=== PATIENT | female | born 1955 | race Caucasian/White ===

== ENCOUNTER 2024-04-28 07:54 | Outpatient (CLI) | payer OTHER, SELFPAY ==
--- NOTE | 2024-04-28 09:08 | W.ANESCHARGE ---
Anesthesia Charges Start Date/Time Anesthesia Start Date: 04/28/24 Anesthesia Start Time: 08:40 Stop Date/Time Anesthesia Stop Date: 04/28/24 Anesthesia Stop Time: 09:06
--- NOTE | 2024-04-28 09:10 | W.ANESCHARGE ---
Anesthesia Charges Start Date/Time Anesthesia Start Date: 04/28/24 Anesthesia Start Time: 08:40 Stop Date/Time Anesthesia Stop Date: 04/28/24 Anesthesia Stop Time: 09:06
== END 2024-04-28 07:55 | disposition home or self-care (01) ==
LOC: OP CLINIC 07:57
PROVIDERS: PCP Physician Assistant Medical; Visit Provider Internal Medicine Gastroenterology
DX: Z12.11 Encounter for screening for malignant neoplasm of colon (principal)
CPT/HCPCS: 00812; 45378; J2704

== ENCOUNTER 2024-08-17 13:15 | Outpatient (RCR) | payer OTHER, SELFPAY | END 2024-12-15 23:59 | disposition home or self-care (01) | PROVIDERS: PCP Physician Assistant Medical; Visit Provider Family Medicine | DX: M54.16 Radiculopathy, lumbar region (principal); M47.816 Spondylosis without myelopathy or radiculopathy, lumbar region; M51.369 Other intervertebral disc degeneration, lumbar region without mention of lumbar back pain or lower extremity pain; Z51.89 Encounter for other specified aftercare | CPT/HCPCS: 97110; 97140; 97163 ==

== ENCOUNTER 2025-02-06 11:11 | Emergency (ER) | payer OTHER, SELFPAY ==
--- OUTSIDE RECORDS SUMMARY | 2025-02-06 11:13 | XMS_ITS | Clinical Summary ---
Author Organization [facility] Address [address] [place] [address] Care Team Providers Care Tunnel Kiln Firer Name Role Phone Aida Nevarez Primary Care Provider Allergies Active Allergy Reactions Criticality Noted Date Comments Sulfa (Sulfonamide Antibiotics) 06/03/2007 Tetanus And Diphtheria Toxoids, Adsorbed, Adult 06/03/2007 reacted to last tetanus shot-arm very swollen and hard after injection Medications Ergocalciferol, Vitamin D2, 1,000 unit capsuleIndications: Vitamin D deficiency Take 2,000 units by mouth once daily. 0 011 Active albuterol HFA (VENTOLIN HFA) 90 mcg/actuation inhalerIndications: SOB (shortness of breath) Inhale 1-2 Puffs by mouth every 6 hours if needed. 1 Inhaler 020 Active famotidine (PEPCID) 20 mg tablet Take 1 Tablet (20 mg) by mouth two times daily. 0 023 Active triamcinolone (ARISTOCORT; KENALOG) 0.1 % creamIndications:Nu mmular eczema Apply topically to affected area(s) two times daily. To right arm 80 g 023 Active warfarin (COUMADIN) 5 mg tabletIndications:F actor V Leiden mutation (HC),Deep vein thrombophlebitis of left leg (HC),Anticoagulatio n monitoring, INR range 2-3 Take by mouth 01/11: 2.5 mg; 01/27: Hold; 01/28: Hold; 01/29: Hold; 01/30: Hold; 01/31: Hold; Otherwise 5 mg every day in the evening OR as directed Active fluconazole (DIFLUCAN ORAL) Take by mouth. Prn if signs of potential yeast infection Active oxyCODONE (ROXICODONE) 5 mg immediate release tabletIndications:S /P total knee arthroplasty, left Take 1-2 Tablets (5-10 mg) by mouth every 4 hours if needed for Pain (For moderate to severe pain). (Take 1 tab (5 mg) for pain rated 5-7/10; Take 2 tabs (10 mg) for pain rated 8-10/10.) 20 Tablet 4:08 PM CDT Active acetaminophen (TYLENOL EXTRA STRGTH) 500 mg tabletIndications:S /P total knee arthroplasty, left Take 2 Tablets (1,000 mg) by mouth every 6 hours if needed for Pain. Max acetaminophen dose: 4000 mg in 24 hrs. 100 Tablet Active warfarin 5 mg tabletIndications:F actor V Leiden mutation (HC),Deep vein thrombophlebitis of left leg (HC),Anticoagulatio n monitoring, INR range 2-3 Take by mouth 5 mg (5 mg x 1) every day in the evening OR as directed 95 Tablet 025 2024 Discontin ued(Reord er (E-cancel not sent)) warfarin (COUMADIN) 5 mg tabletIndications:F actor V Leiden mutation (HC),Deep vein thrombophlebitis of left leg (HC),Anticoagulatio n monitoring, INR range 2-3 Take by mouth 5 mg (5 mg x 1) every day in the evening OR as directed 95 Tablet 025 2024 Discontin ued(Reord er (E-cancel not sent)) amoxicillin-clavula rita (AUGMENTIN) 875-125 mg tabletIndications:A cute non-recurrent maxillary sinusitis Take 1 Tablet by mouth two times daily with meals for 10 days. 20 Tablet 025 2024 fluconazole (DIFLUCAN) 150 mg tabletIndications:Y east vaginitis Take 1 Tablet (150 mg) by mouth one time for 1 dose. 1 Tablet 025 2024 amoxicillin/potassi um clav (AUGMENTIN ORAL) Take by mouth. RX to take for 10 days 2024 Discontin ued(*Francesca ent states no longer taking) Active Problems Problem Noted Date Diagnosed Date S/p Left total knee arthropl asty DOS: 02/01/2025 with Gagandeep Ruff MD 02/01/2025 Unilateral primary osteoarthritis, left knee MGUS (monoclonal gammopathy of unknown significa nce) 02/01/2025 History of DVT (deep vein thrombosis) 02/01/2025 Vitamin D deficiency 01/31/2025 Acute non-recurrent maxillary sinusitis 02/01/20 Adjustment disorder with mixed anxiety and depre ssed mood 05/18/2014 Anticoagulation monitoring, INR range 2-3 2013 Skin lesion of back 10/10/2013 Routine general medical exam ination at a health care facility 12/10/2010 Overview (11/01/2013): Colonoscopy 2001, showing hemorrhoids. Repeat recommend at age 52 Colonoscopy 10/2013 normal repeat in 10 years Medial meniscus tear 12/13/2009 Overview (10/10/2013): Had surgery, still has troubles. Factor V Leiden mutation 11/08/2009 Vitamin D deficiency 04/06/2009 Deep vein thrombophlebitis of left leg 9 Overview (03/29/2009): INR goal range 2.0-3.0 Encounters Date Type Department Care Team Description 02/06/2025 Nurse Triage [facility] [address] [place] [address] Aida Nevarez PA Diarrhea 02/06/2025 Telephone [facility] [address] [facility] [address] [place] [address] Jessica May, clarifying plant operator Nurse Navigator (Diarrhea/hemorrhoids ) 02/05/2025 Telephone [facility] [address] [facility] [address] [place] [address] Jessica May clarifying plant operator Nurse Navigator (Follow up discharge phone call) 02/01/2025 8:21 AM CDT Anesthesia Event [place] [address] [place] [address] Casimiro Handy MD Dahl, Ashley Rose Dragavon, MD 02/01/2025 7:40 AM CDT - 02/01/2025 9:47 AM CDT Surgery [address] [place] [address] Gagandeep Ruff MD BEDDED OUTPATIENT LEFT TOTAL KNEE ARTHROPLASTY 02/01/2025 6:06 AM CDT - 02/02/2025 11:40 AM CDT Hospital Encounter [address] [place] [address] Gagandeep Ruff MD Primary osteoarthritis of left knee (Primary Dx); S/P total knee arthroplasty, left Discharge Disposition: Home Self Care 01/31/2025 Travel 01/25/2025 10:00 AM CDT Orders Only [facility] [address] [place] [address] [place] Lab 01/25/2025 Anticoagulation (warfarin) [facility] [address] [place] [address] NurseKirti Anticoag Anticoagulation 01/24/2025 Travel 01/16/2025 Telephone [facility] [address] [facility] [address] [place] [address] Jessica May, clarifying plant operator Nurse Navigator (Pre-op check in ) 01/10/2025 10:30 AM CDT Orders Only [facility] [address] [place] [address] [place] [facility] 01/10/2025 Telephone [facility] [address] [place] [address] Aida Nevarez PA Anticoagulation (Procedure hold update.) 01/10/2025 Anticoagulation (warfarin) [facility] [address] [place] [address] NurseKirti Anticoag Anticoagulation 01/10/2025 Travel 01/09/2025 Telephone [facility] [address] [place] [phone] Gagandeep Ruff MD Physical Therapy 01/08/2025 10:30 AM CDT Office Visit [facility] [address] [place] [address] Aida Nevarez PA Preoperative Exam (L knee) 01/08/2025 Anticoagulation (warfarin) [facility] [address] [place] [address] NurseKirti Anticogómez Anticoagulation (chart update) 01/08/2025 Telephone [facility] [address] [place] [address] Aida Nevarez PA Anticoagulation (OPA- amoxicillin-clavulana te (AUGMENTIN)) 01/08/2025 Telephone [facility] [address] [place] [address] Aida Nevarez PA Medication Management ([id number] interaction) 01/08/2025 Travel 01/03/2025 Travel 12/14/2024 Anticoagulation (warfarin) [facility] [address] [place] [address] NurseKirti Anticoag Anticoagulation 12/14/2024 Travel 12/04/2024 Telephone [facility] [address] [place] [address] Aida Nevarez PA Anticoagulation (02/01/25 - LEFT TOTAL KNEE ARTHROPLASTY) 11/27/2024 Telephone [facility] [address] [place] [address] Aida Nevarez PA Anticoagulation (INR OVERDUE REMINDER #2) from Last 3 Months Immunizations Immunization Administration Dates Next Due AMB Influenza, IIV3 (Age >=3 years)(Flu Clinic Only) 04/28/2012 AMB Influenza, IIV4 PF (=>6 mos Flulaval,Fluzone Fluarix)(Flu Clinic Only) 04/19/2014 COVID-19 vaccine (MyPublisher NTech 30mcg/0.3mL) 12YO+ BIVALENT PF, MDV 04/03/2022 COVID-19 vaccine ([employer]ech 30mcg/0.3mL) 12YO+ BLAYNE-SUCROSE PF, MDV 12/18/2021 COVID-19 vaccine ([employer]ech 30mcg/0.3mL) PF, MDV 05/19/2021,09/30/2020,09/09/2020 Influenza A (H1N1), Inactivated 06/11/2009 Influenza A (H1N1), Inactiva donna (Age >=3 Years) 06/11/2009 Influenza, IIV3 (Age >=3 years) 04/28/2012,03/17,03/24/2010 Influenza, IIV4 04/03/2022, 9,04/19/2018,2016,03/26/2016,05/10/2015,04/19/2014,1 Influenza, IIV4 (=>6mos) MDV 03/08/2020,03/30/20 16 Influenza, Inactivated IIV3 (Age 65+ Years) Preserv Free 03/22/2024 Influenza, Injectable, Mdck, Quadrivalent, W/preservative 04/01/2021 Td (Age >=7 Years) 01/12/2002 Zoster (Shingrix-RZV, recombinant) 09/05/2021, Family History Medical History Relation Name Comments Factor V Leiden deficiency Brother 1 Other Brother 1 MGUS Diabetes Brother 2 Factor V Leiden deficiency Brother 2 Heart Disease Father Heart failure Father Hypertension Father Thyroid Disease Father Arthritis Mother Heart Disease Mother Hypertension Mother Other Mother Stroke Mother Celiac disease Sister Cancer-breast No Family History Cancer-ovarian No Family History Relation Name Status Comments Brother 1 Alive Brother 2 Alive Father Mother Sister Alive Social History Tobacco Use Types Packs/Day Years Used Date Smoking Tobacco: Never Smokeless Tobacco: Never Tobacco Cessation:Counseling Given: Yes Alcohol Use Standard Drinks/Week Comments Yes 5.8 (1 standard drink = 0.6 oz p ure alcohol) occasional PHQ-2 Answer Date Recorded PHQ-2 Score 1 12/19/2018 Social Connections Answer Date Recorded Do you often feel lonely or isolated from those around you? 0 01/18/2024 Financial Resource Strain Answer Date R ecorded Difficulty of Paying Living Expenses 3 01/18/2024 Difficulty of Paying Living Expenses Not on file 01/18/2024 Food Insecurity Answer Date Recorded Do you worry your food will run out before you are able to buy more? 1 01/18/2024 Transportation Needs Answer Date Record ed Does lack of transportation keep you from medica l appointments? 1 01/18/2024 Does lack of transportation keep you from work, meetings or getting things that you need? 1 01/18/2024 Housing Stability Answer Date Recorded What is your housing situation today? 1 01/18/2024 Utilities Answer Date Recorded Do you have trouble paying f or utilities (for example, heat, electricity, water, phone)? 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 Gender Identity Female 12/22/2019 10:02 AM CDT Sexual Orientation Not on file Obstetrics History Last Filed Vital Signs Vital Sign Reading Time Taken Comments Blood Pressure 131/60 02/02/2025 7:22 AM CDT Pulse 67 02/02/2025 7:22 AM CDT Temperature 36.8 C (98.2 F) 02/02/2025 7:22 AM CDT Respiratory Rate 16 02/02/2025 7:22 AM CDT Oxygen Saturation 96% 02/02/2025 7:22 AM CDT Inhaled Oxygen Concentration - - Weight 102.5 kg (225 lb 15.5 oz) 02/01/2025 7:23 AM CDT Height 170.2 cm (5' 7) 02/01/2025 7:23 AM CDT Body Mass Index 35.39 02/01/2025 7:23 AM CDT Plan of Treatment Upcoming Encounters Date Type Department Care Team (Late st Contact Info) Description 02/08/2025 1:30 PM CDT Orders Only [facility] [address] [place] 02/15/2025 10:20 AM CDT Office Visit [facility] [address] [place] [phone] Jennifer Cifuentes PA [address] [place] [address] Scheduled Procedures Name Priority Associated Diagnoses Date/Ti me SURGICAL PROCEDURE (TYPE PROCEDURE DESCRIPTION BELOW) Encounter for screening colonoscopy Health Maintenance Due Date Last Done Comments Pneumococcal series for age 50+ (1 of 1 - PCV) 11/15/2007 RSV vaccine for adults or (1 - Risk 60-74 years 1-dose series) 2017 Depression screening for age 12+ 12/20/2019 12/19/2018, 12/19/2018, 09/27/2017, Additional history exists COVID-19 vaccine series (2023- season) 2024 03/22/2024, 03/24/2023, 04/03/2022, Additional history exists BMI (ht and wt on same day) for age 18+ 01/17/2025 01/18/2024, 12/14/2022, 03/13/2022, Additional history exists Mammogram for age 45-75 02/10/2025 02/11/20 24, 12/17/2022, 09/04/2021, Additional history exists Influenza Vaccine (#1) 2025 , 04/03/2022, 04/01/2021, Additional history exists Lipids for age 45-75 01/17/2029 01/18/2024, 12/14/2022, 03/13/2022, Additional history exists Colonoscopy through age 75 04/28/203404/28, 11/01/2013, 11/01/2013 Hepatitis C screening for age 18-79 Completed 10/10/2013 Zoster (shingles) series for age 50+ Completed 09/05/2021, 03/11/2021 DEXA/DXA scan for age 65+ Completed 04/10/2024 Hepatitis B series for 19+ Aged Out N o longer eligible based on patient's age to complete this topic Medical Devices Implanted Type Area Quality Compliance Coordinator Device Identifier Shelf Expiration Date Model / Serial / Lot Insert Tib Sz 6 13mm Knee X3 Condylar Stabilizing Triathlon - [id number] Implanted:Qty: 1 on 02/01/2025 by Gagandeep Ruff MD at [facility] Left: Knee [employer] 10/03/2029 [id number]-G-[id number] / / [id number] Patella A38x11 Triathlon Tritanium Asymmetric Metal Backed - [id number] Implanted:Qty: 1 on 02/01/2025 by Gagandeep Ruff MD at [facility] Left: Knee [employer] 09/27/2029 [id number] / / [id number] Baseplate Tib Univ Sz 6 Triathlon Keeled Ingrowth Pors Tritan - [id number] Implanted:Qty: 1 on 02/01/2025 by Gagandeep Ruff MD at [facility] Left: Knee [employer] 12/01/2029 [id number] / / [id number] Fem Lt 6 Triathlon Beaded W/Pa - [id number] Implanted:Qty: 1 on 02/01/2025 by Gagandeep Ruff MD at [facility] Left: Knee [employer] 11/20/2029 [id number] / / [id number] Procedures Procedure Name Priority Date/Time Associated Diagnosis Comments HEMOGLOBIN Early AM 02/02/2025 9:01 AM CDT PROTIME-INR Early AM 02/02/2025 9:01 AM CDT XR KNEE 2 VIEWS LEFT PORTABLE KRYSTEN 02/01/2025 10:48 AM CDT PERIPHERAL BLOCK Routine 02/01/2025 9:03 AM CDT ENDOTRACHEAL TUBE Routine 02/01/2025 8:55 AM CDT ENDOTRACHEAL TUBE Routine 02/01/2025 8:55 AM CDT ENDOTRACHEAL TUBE Routine 02/01/2025 8:55 AM CDT ARTHROPLASTY KNEE Tier 4: > 90 days 02/01/2025 8:01 AM CDT Primary osteoarthritis of left knee Case Notes 60 [id number] REGULAR TABLE [employer] [employer], [employer] confirmed w/Socrates Rodriguez [phone] 01/24 JTPA TO ASSIST Special Needs 5ft.7in 105.2kg 35.82 BMIPONVCoumadin Last dose 01/27/2025 GLUCOSE, RANDOM Today 02/01/2025 7:00 AM CDT PROTIME-INR Preop 02/01/2025 7:00 AM CDT CREATININE Preop 02/01/2025 7:00 AM CDT POTASSIUM Preop 02/01/2025 7:00 AM CDT CBC W PLT NO DIFF Preop 02/01/2025 7:00 AM CDT BEDSIDE US STUDY ARCHIVE Preop 02/01/2025 6:36 AM CDT BEDSIDE US STUDY ARCHIVE Routine 02/01/2025 6:25 AM CDT SCAN-CARDIAC STRIP 02/01/2025 12:00 AM CDT PROTEIN ELP SERUM W REFLEX Routine 01/25/2025 10:10 AM CDT Family history of blood disorder PROTEIN ELP,URINE RANDOM Routine 01/25/2025 10:10 AM CDT Family history of blood disorder PROTIME-INR Routine 01/25/2025 10:10 AM CDT Factor V Leiden mutation (HC) Deep vein thrombophlebitis of left leg (HC) Anticoagulation monitoring, INR range 2-3 EKG 12 LEAD Routine 01/10/2025 3:44 PM CDT Preop general physical exam SC READING EKG - NO CHARGE, COMP ONLY Routine 01/10/2025 3:43 PM CDT Preop general physical exam INR,POCT Routine 01/10/2025 10:43 AM CDT Factor V Leiden mutation (HC) Deep vein thrombophlebitis of left leg (HC) Anticoagulation monitoring, INR range 2-3 INR,POCT Routine 12/14/2024 1:15 PM CDT Factor V Leiden mutation (HC) Deep vein thrombophlebitis of left leg (HC) Anticoagulation monitoring, INR range 2-3 COLONOSCOPY SCREENING Routine 04/28/2024 12:00 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 Daily x 1 (02/02/2025 9:01 AM CDT) HEMOGLOBIN 11.4(L) 12.0 - 16.0 g/dL 02/02/2025 9:26 AM CDT [facility] MCV 92 80 - 100 fL 02/02/2025 9:26 AM CDT [facility] Blood BLOOD SPECIMEN / Unknown Venipuncture / Unknown 02/02/2025 9:01 AM CDT 02/02/2025 9:12 AM CDT Narrative [facility] - 02/02/2025 9:26 AM CDT Call surgeon if hemoglobin less than 8. us Nathaniel DOWD HEMATOLOGY Final Resu lt Performing Organization Address [facility]/ZIP Co de Phone Number [facility] SENDOUT [place]IP [phone] [place] [address] * PROTIME-INR (02/02/2025 9:01 AM CDT) Only the most recent of3 resultswithin the time period is included. INR 1.1 <1.3 02/02/2025 9:24 AM CDT [facility] PROTIME 12.4 10.6 - 12.4 sec 02/02/2025 9:24 AM CDT [facility] Blood BLOOD SPECIMEN / Unknown Venipuncture / Unknown 02/02/2025 9:01 AM CDT 02/02/2025 9:12 AM CDT Narrative [facility] - 02/02/2025 9:24 AM CDT Therapeutic Range 2.0-3.0 for most anticoagulated patients 2.5-3.5 or 4.0 for high risk patients The INR is only used for patients on stable oral anticoagulant therapy. It makes no significant contribution to the diagnosis or treatment of patients whose Protime is prolonged for other reasons. INR results are increased when heparin levels exceed 1.0 U/mL, which corresponds to an aPTT >125 seconds if the patient is on UFH. Carole Malin MD HEMATOLOGY Fin al Result Performing Organization Address [facility]/ZIP Co de Phone Number [facility] SENDOUT [place]IP [phone] [place] [address] * XR KNEE 2 VIEWS LEFT PORTABLE (02/01/2025 10:48 AM CDT) Anatomical Region Laterality Modality KNEE L Computed Radiogr aphy 02/01/2025 10:4 8 AM CDT Impressions 02/01/2025 10:53 AM CDT Expected postoperative changes status post recent total knee arthroplasty. No immediate hardware complication. No acute fracture or malalignment. Narrative 02/01/2025 10:53 AM CDT For Patients: As a result of the Century Cures Act, medical imaging exams and procedure reports are released immediately into your electronic medical record. You may view this report before your referring provider. If you have questions, please contact your health care provider. EXAM: XR KNEE 2 VIEWS LEFT PORTABLE LOCATION: [facility] DATE: 02/01/2025 INDICATION: Eval prosthesis/appliance COMPARISON: Radiographs 09/14/2024. Procedure Note Carole Ruff MD - 02/01/2025 For Patients: As a result of the Cures Act, medical imagingexams and procedure reports are released immediately into your electronicmedical record. You may view this report before your referring provider.If you have questions, please contact your health care provider. EXAM: XR KNEE 2 VIEWS LEFT PORTABLE LOCATION: [facility] DATE: 02/01/2025 INDICATION: Eval prosthesis/appliance COMPARISON: Radiographs 09/14/2024. IMPRESSION: Expected postoperative changes status post recent total knee arthroplasty.No immediate hardware complication. No acute fracture or malalignment. us Nathaniel DOWD [facility] Final Resu lt * [facility] ANES BLOCK INJ PERIPH (02/01/2025 9:03 AM CDT) Narrative Casimiro Handy MD - 02/01/2025 9:03 AM CDT Casimiro Handy MD 02/01/2025 9:05 AM Peripheral Block Patient location during procedure: pre-op Start time: 02/01/2025 8:13 AM End time: 02/01/2025 8:18 AM Reason for block: at surgeon's request and post-op pain Requesting provider: Gagandeep Ruff MD PreProcedure Checklist Completed: patient identified, site marked, risks and benefits discussed, surgical consent, timeout performed and hand hygiene performed. Peripheral Block Patient position: sitting Prep: chloraprep Patient monitoring: continuous pulse oximetry, blood pressure and ECG Supplemental O2: yes Neuro Status: mild sedation Block type: adductor canal and lower extremity , regional analgesia techniques Lower extremity block type: adductor canal block of the femoral nerve Laterality: left Injection technique: single injection Injection assessment: incremental Needle Needle type: Stimuplex Needle Details: echogenic Needle gauge: 20 G Needle length: 4 in Unilateral needle localization (ultrasound): live ultrasound guidance, needle and nerve visualized, no pathologic findings, local anesthetic visualized surrounding nerve, nerve appears normal and permanent images obtained. Unilateral needle Localization (plane blocks): needle and expected nerve location visualized, local anesthetic visualized in anatomic plane and anatomic plane and expected location of nerve appears normal Events: no complications. Casimiro Handy MD ANESTHESIA PX NOTE ORDERABLES Final Result * [facility] TUBE PR1, [facility] STYLET PR1, [facility] MOUTHPIECE PR1 (02/01/2025 8:55 AM CDT) Narrative Carlota Donaldson CRNA - 02/01/2025 8:55 AM CDT Carlota Donaldson CRNA 02/01/2025 8:55 AM Procedure: ETT Patient location during procedure: OR ETT Properties Mask Ventilation: easy Final Technique: direct laryngoscopy Type: straight Location: oral Cuffed: yes Tube Size: 7.0 mm Stylet: yes Laryngoscope Blade: Guzman Blade Size: 2 Cormack-Lehane Grade View: 2 Insertion Attempts: 1 Placement Verification: auscultation, end tidal CO2 and symmetrical chest wall movement Assessment: pharynx clear, atraumatic and dentition unchanged Secured at: 24 Measured From: teeth Tooth guard used and removed: yes Difficulty: 0 (not difficult) Casimiro Handy MD ANESTHESIA PX NOTE ORDERABLES Final Result * GLUCOSE, RANDOM (02/01/2025 7:00 AM CDT) GLUCOSE,RANDOM 106 70 - 139 mg/dL 02/01/2025 7:27 AM CDT [facility] Blood BLOOD SPECIMEN / Unknown Venipuncture / Unknown 02/01/2025 7:00 AM CDT 02/01/2025 7:03 AM CDT Gagandeep Ruff MD CHEMISTRY Final Result [facility] SENDOUT [place] Z[address] [phone] [place] [address] * CBC with Platelets no Differential (02/01/2025 7:00 AM CDT) WHITE BLOOD COUNT 6.3 4.5 - 11.0 thou/cu mm 02/01/2025 7:12 AM [facility] RED BLOOD COUNT 4.38 4.00 - 5.20 mil/cu mm 02/01/2025 7:12 AM [facility] HEMOGLOBIN 13.4 12.0 - 16.0 g/dL 02/01/2025 7:12 AM [facility] HEMATOCRIT 39.5 33.0 - 51.0 % 02/01/2025 7:12 AM [facility] MCV 90 80 - 100 fL 02/01/2025 7:12 AM [facility] MCH 30.6 26.0 - 34.0 pg 02/01/2025 7:12 AM [facility] MCHC 33.9 32.0 - 36.0 g/dL 02/01/2025 7:12 AM [facility] RDW 13.4 11.5 - 15.5 % 02/01/2025 7:12 AM [facility] PLATELET COUNT 292 140 - 440 thou/cu mm 02/01/2025 7:12 AM [facility] MPV 9.6 6.5 - 11.0 fL 02/01/2025 7:12 AM [facility] NRBC 0.0 % 02/01/2025 7:12 AM [facility] ABS NRBC 0.0 thou /cu mm 02/01/2025 7:12 AM [facility] Blood BLOOD SPECIMEN / Unknown Venipuncture / Unknown 02/01/2025 7:00 AM CDT 02/01/2025 7:03 AM [facility] - 02/01/2025 7:12 AM CDT If not done within last 30 days. Nurse to release order. us Nathaniel DOWD HEMATOLOGY Final Resu lt [facility] SENDOUT [place] [address] [phone] [place] [address] * Potassium (02/01/2025 7:00 AM CDT) POTASSIUM 4.0 3.5 - 5.1 mmol/L 02/01/2025 7:27 AM [facility] Blood BLOOD SPECIMEN / Unknown Venipuncture / Unknown 02/01/2025 7:00 AM CDT 02/01/2025 7:03 AM CDT Nathaniel DOWD CHEMISTRY Final Resu Performing Organization Address [facility]/ZIP Co de Phone Number [facility] SENDOUT INTERNAL ZIP [phone] [place] [id number] * (ABNORMAL) Creatinine (02/01/2025 7:00 AM CDT) Pathologist [facility] eGFR 67(L) >90 mL/min/1.7 3m2 02/01/2025 7:27 AM CDT [facility] Comment:As of 2021, eG FR is calculated by the CKD-EPI creatinine equation without race adjustment. eGFR can be influenced by muscle mass, exercise, and diet. The reported eGFR is an estimation only and is only applicable if the renal function is stable. CREATININE 0.94(H) 0.50 - 0.90 mg/dL 02/01/2025 7:27 AM CDT [facility] Blood BLOOD SPECIMEN / Unknown Venipuncture / Unknown 02/01/2025 7:00 AM CDT 02/01/2025 7:03 AM CDT Nathaniel DOWD CHEMISTRY Final Resu Performing Organization Address City/[facility]/ZIP Co de Phone Number [facility] SENDOUT INTERNAL ZIP [id number] [address] [place] [address] * SCAN-CARDIAC STRIP (02/01/2025 12:00 AM CDT) Narrative 02/01/2025 12:00 AM CDT Ordered by an unspecified provider. Other Clinical Staff OTHER Final Resul t * PROTEIN ELP SERUM W REFLEX (01/25/2025 10:10 AM CDT) Pathologist [facility] ELP,ALBUMIN 4.51 3.31 - 5.31 g/dL 01/26/2025 3:24 PM CDT [facility] ELP,ALPHA 1 0.25 0.19 - 0.42 g/dL 01/26/2025 3:24 PM CDT [facility] ELP,ALPHA 2 0.62 0.44 - 1.03 g/dL 01/26/2025 3:24 PM CDT [facility] ELP,GAMMA 0.88 0.59 - 1.46 g/dL 01/26/2025 3:24 PM CDT [facility] ELP,BETA 0.83 0.52 - 1.05 g/dL 01/26/2025 3:24 PM CDT [facility] ELP INTERP,SERUM Normal electrophoretic pattern. No monoclonal protein detected. Interpreted and electronically signed by: Fan Ramon MD 01/26/2025 3:24 PM CDT [facility] PROTEIN,TOTA L 7.1 6.0 - 8.0 g/dL 01/26/2025 3:24 PM CDT [facility] Blood BLOOD SPECIMEN / Unknown [facility] / Unknown 01/25/2025 10:10 AM CDT 01/25/2025 10:10 AM CDT Aida DOWD CHEMISTRY Final R esult [facility] [address] [place] [address], [place] * PROTEIN ELP,URINE RANDOM (01/25/2025 10:10 AM CDT) ELP INTERP, URINE Essentially no proteinuria. No monoclonal protein detected. Interpreted and electronically signed by: Fan Ramon MD 01/26/2025 4:29 PM CDT [facility] PROTEIN QUANT,RAND URINE <6 1 - 14 mg/dL 01/26/2025 4:29 PM CDT [facility] Urine URINE SPECIMEN / Unknown Non-Blood / Unknown 01/25/2025 10:10 AM CDT 01/25/2025 10:10 AM CDT us Aida DOWD URINE Final R esult [facility] [address] [place] [address], [place] * EKG 12 LEAD (01/10/2025 3:44 PM CDT) us Aida DOWD EKG ORD Final R esult * SC READING EKG - NO CHARGE, COMP ONLY (01/10/2025 3:43 PM CDT) Aida DOWD PB - PROVIDER READINGS Final Result * (ABNORMAL) INR - POCT [[id number]] - Standing Order (01/10/2025 10:43 AM CDT) Only the most recent of2 resultswithin the time period is included. INR 2.9(H) ratio [facility] Comment: INRs >2.9 may be falsely elevated in patients receiving either unfractionated Heparin or Low Molecular Weight Heparin. Follow up testing in a hospital laboratory may be helpful if clinically indicated. INR results of > or = 5.0 should be verified using the standard venipuncture procedure. Reference Range 0.9-1.1 Moderate-intensity Warfarin Therapy 2.0-3.0 Higher-intensity Warfarin Therapy 3.0-4.0 PROTHROMBIN TIMEP 34.7(H) 10.5 - 13.1 sec [facility] Comment: Point of care fingerstick Prothrombin Time/INR results may vary from venous Prothrombin Time/INR methodologies. Any results exhibiting inconsistency with the patient's clinical status should be repeated using a venous Prothrombin Time/INR method. 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 RECOMMENDATIONS: The National Osteoporosis Foundation recommends pharmacologic treatment for patients with T-scores of -2.5 or less, patients with prior history of fragility fractures, or patients with 10-year probability of greater than 3% at hips or greater than 20% of suffering major osteoporotic fractures. Recommend continued optimization of calcium and vitamin D intake through dietary means and/or supplementation and regular exercise. Repeat scan recommended in 3-5 years. Aida Nevarez PA-C [facility] 04/12/2024 Narrative 04/12/2024 4:25 PM CDT For Patients: Results are automatically released to your [facility] account once available, in compliance with federal regulations. This means that you may see your results before your provider has had a chance to review them. Please allow 2-3 business days for your provider to comment on the results. XR DXA Bone Mineral Density (BMD) EXAM LOCATION: [facility] [address] [facility] [address] PATIENT NAME: Mary Montero DATE OF : 1955 EXAM DATE: 04/10/2024 REQUESTING PROVIDER: Aida Nevarez PA GENDER AT : female HEIGHT: 5' 7.48 (01/18/2024) WEIGHT: 229 lb (04/10/2024) MENOPAUSAL STATUS: Postmenopausal RACE/ETHNICITY: White RISK FACTORS: Family History of Osteoporosis, Family History of Hip Fracture (parental), and White Race CURRENT MEDICATION FOR BONE LOSS: NONE INDICATION: Post-Menopause COMPARISON DATE(S): None DXA scans are compared to prior studies for a patient only when the two (or more) studies were performed on the same scanner. It is not possible to compare data generated on one scanner to data from another because there are not standards in DXA equipment. This applies even if the two scanners are made by the same statistical engineer. PROCEDURE: Dual-energy x-ray absorptiometry performed with routine technique. Reporting is completed in the form of a T-score. The T-score represents the standard deviation from peak bone mass based on young healthy adult. A Z-score is used for diagnosis in premenopausal women, and for men under the age of 50. FINDINGS: RESULT LUMBAR SPINE L1 - L4 BMD: 1.391 g/cm2 T-Score: + 1.6 Z-Score: + 2.0 Change from prior: None RESULTS FEMUR Left femoral neck BMD: 0.767 g/cm2 T-Score: - 1.9 Z-Score: - 1.2 Change from prior: None Right femoral neck BMD: 0.898 g/cm2 T-Score: - 1.0 Z-Score: - 0.2 Change from prior: None Left hip BMD: 0.833 g/cm2 T-Score: - 1.4 Z-Score: - 1.0 Change from prior: None Right hip BMD: 0.906 g/cm2 T-Score: - 0.8 Z-Score: - 0.4 Change from prior: None WHO criteria: Normal: T-score at or above -1 SD Osteopenia: T-score between -1.1 and -2.4 SD Osteoporosis: T-score at or below -2.5 SD FRAX RISK CALCULATION (USED FOR OSTEOPENIA ONLY): 10-year probability of major osteoporotic fracture: 17.9%. 10-year probability of hip fracture: 1.9%. us Aida DOWD DEXA Final R esult * XR MAMMO ANTONI BILAT SCREEN (02/11/2024 11:23 AM CDT) Anatomical Region Laterality Modality BREASTS, Breast Left, Breast Right Bilateral Mammography Impressions 02/11/2024 4:06 PM CDT There is no radiographic evidence for malignancy. Recommend annual mammograms. MAMMOGRAM ASSESSMENT: ACR 1 Negative PATIENTS: You will also receive a letter with your examination results in an easy to read format. If you have questions about your results, please contact your referring provider. Narrative 02/11/2024 4:06 PM CDT For Patients: As a result of the 21st Century Cures Act, medical imaging exams and procedure reports are released immediately into your electronic medical record. You may view this report before your referring provider. If you have questions, please contact your health care provider. XR MAMMO ANTONI BILAT SCREEN [[id number]] CLINICAL HISTORY: This is an asymptomatic 68 y.o. patient. INDICATION FOR EXAM: Mammogram Screening. TECHNIQUE: CC & MLO views were obtained. This study was evaluated with the assistance of Computer-Aided Detection. Breast Tomosynthesis was used in interpretation. COMPARISON FILM: Yes 12/17/22 [employer] 09/04/21 [facility] FINDINGS: There are scattered areas of fibroglandular density. There are no dominant masses, suspicious micro calcifications or areas of architectural distortion. us Aida Nevarez PA MAMMO Final R esult * (ABNORMAL) LIPID PANEL W REFLEX MEASURED LDL (01/18/2024 11:34 AM CDT) CHOLESTEROL,TOTAL 204(H) 100 - 199 mg/dL 01/19/2024 1:12 AM CDT [facility] Comment: Cholesterol, Total Reference Ranges Desirable <200 mg/dL Borderline 200-239 mg/dL High >=240 mg/dL TRIGLYCERIDES 121 <150 mg/dL 01/19/2024 1:12 AM CDT [facility] HDL CHOLESTEROL 62 >40 mg/dL 4 1:12 AM CDT [facility] NON-HDL CHOLESTEROL 142 <145 mg/dl 01/19/2024 1:12 AM CDT [facility] CHOL/HDL RATIO 3.29 <4.50 01/19/2024 1:12 AM CDT [facility] LDL CHOLESTEROL 118 <=130 mg/dL 01/19/2024 1:12 AM CDT [facility] VLDL CHOLESTEROL 24 <=30 mg/dL 01/19/2024 1:12 AM CDT [facility] PROVIDER ORDERED STATUS RANDOM 01/19/2024 1:12 AM CDT [facility] Blood BLOOD SPECIMEN / Unknown Venipuncture / Unknown 01/18/2024 11:34 AM CDT 01/18/2024 11:34 AM CDT Aida Nevarez PA CHEMISTRY Final R esult [facility] [address] [place] [address], [place] * ANTI HCV [[id number]] (10/10/2013 1:44 PM CDT) HEPATITIS C ANTIBODY Non-Reacti ve Non-Reacti ve 10/10/2013 10:04 PM CDT [facility] Blood specimen (specimen) BLOOD SPECIMEN / Unknown Venipuncture / Unknown 10/10/2013 1:44 PM CDT 10/10/2013 1:44 PM CDT Narrative [facility] - 10/10/2013 10:04 PM CDT Antibodies to HCV not detected; does not exclude the possibility of exposure to HCV. Jo Ann Gibson SEND OUTS Final R esult Performing Organization Address [facility] Co de Phone Number [facility] [address] [place] [address], [place] from Last 3 Months or Most Recently Relevant to Health Maintenance Insurance MICAELA KAUFFMAN [id number] [employer] E[employer] Advance Directives * Full Code (Latest Code Status on File) Date Activated Date Inactivated Comments 02/01/2025 3:18 PM 02/02/2025 1:52 PM Question Answer Comments Code Status Discussion: Unable to Assess Preferences, Provider to review later * Full Code Date Activated Date Inactivated Comments 02/01/2025 6:36 AM 02/01/2025 3:18 PM Question Answer Comments Code Status Discussion: Not Discussed Care Teams [employer] Relationship Specialty Start Date End Date [place] [address] [address] PCP - General Family Practice 05/21/15
[2025-02-06 11:22] VITALS: BP 136/88; PULSE 88; RESP 18; TEMP 36.9; O2SAT 100; BMI 35.2
--- NOTE | 2025-02-06 12:59 | ED.ABDPAIN ---
HPI - Abdominal Pain General Time Seen by Provider: 12:59 Date Seen: 02/06/25 Chief Complaint: Abdominal Pain Stated Complaint: Had knee surgery last Thru- stomach issues Time Seen by Provider: 02/06/25 12:52 Source: patient and RN notes reviewed Mode of arrival: ambulatory Limitations: no limitations History of Present Illness HPI narrative: This 69-year-old female is presenting to the ER with abdominal concerns. She had a left total knee replacement on the , was discharged home on the . She got oxycodone regularly until Wednesday, took her last dose on Wednesday. She did take senna while in the hospital as she had not had stool production. She took MiraLax on Wednesday feeling like she needed to go but could not. She took a senna on Wednesday. She had small production of stool but was more hard and firm. Wednesday she states she had a lateral blow out, she feels like she is having liquid stool now and diarrhea, does not want to eat. She will get some cramping before this but no abdominal pain. Her temperatures in the morning have been maximum of 100.8. She did take antibiotics for 10 days at the end of December for a sinus infection. She did get 2 doses of IV antibiotics from what they remember prior or with her surgery. She has been eating minimally as she does not want to have to go to the bathroom. She feels her hemorrhoids have flared. She is sore in the rectal/anal area. Patient is anticoagulated with coumadin, has factor 5 Leiden. Related Data Home Medications ?Medication ?Instructions ?Recorded ?Confirmed acetaminophen 500 mg capsule 1,000 mg PO Q4-6H PRN 02/06/25 02/06/25 oxycodone 5 mg tablet 5 mg PO Q4H PRN 02/06/25 02/06/25 warfarin 5 mg tablet 5 mg PO DAILY 02/06/25 02/06/25 Allergies Allergy/AdvReac Type Severity Reaction Status Date / Time sulfamethoxazole (From Allergy Verified 02/06/25 11:35 Bactrim) tetanus and diphtheria Allergy Verified 02/06/25 11:35 toxoids trimethoprim (From Bactrim) Allergy Verified 02/06/25 11:35 PFSH PFSH Social History Smoking Status: Never smoker How often do you have a drink containing alcohol: monthly or less AUDIT-C Alcohol total score: 1 Non-prescribed substance use: denies use Exam Const: Vital Signs, click to edit/add: Vital Signs - 24 hr 02/06/25 11:22 02/06/25 14:47 Temperature 98.4 F 96.5 F L Pulse Rate [Pulse Oximeter] 88 71 Respiratory Rate 18 18 Blood Pressure [Ri ght Upper Arm] 136/88 151/84 H Pulse Oximetry 100 98 Oxygen Delivery Me thod Room Air Room Air This 69-year-old female is alert, interactive, no apparent distress. Able speak in complete sentences, did ambulate in with a walker. Sclera clear, face atraumatic, oropharynx with somewhat dry mucous membranes, lips are normal though. Lungs are clear, good air entry, no wheezing crackles, tachypnea, no accessory muscle use. CV regular rate and rhythm, no murmur, normal S1-S2, no S3-S4. Abdomen has bowel sounds that sound normal, no organomegaly, no rebound or guarding, completely nontender at this time. She has a bandage over the anterior left knee, can see couple areas where there was blood in the bandage but has more of a dry parent. There is bruising around the knee and tracking into the calf. Documenting provider has reviewed patient's vital signs: yes Course Course ED Course: They do bring up concerns of possible C diff, this has been mention to them. She does not have a history of this before. We certainly can order this test, if she has ongoing diarrhea but does not produce stool here, we can send her with a collection kit. Her exam is reassuring. I do wonder if this is more complication of narcotic use, possible still constipation. There is no evidence of any external fissure or significant hemorrhoids. She may need a barrier cream to help with skin care. We will start with a flat and upright, basic labs. Will give her L of IV fluids and 4 mg IV Zofran. They understand that if there is anything concerning, may need to do CT imaging. Reevaluation(s) Time of Reevaluation #1: 15:01 Reevaluation #1: Have reviewed normal findings, subtherapeutic INR, normal imaging. She is feeling fine, can discharge to home, collect C diff if ongoing diarrhea and return specimen. asked about Imodium, requested that they refrain from this at this time. Reviewed rationale behind possibility of infectious etiology and would not want to use Imodium. Vital Signs Vital signs: Initial Vital Signs Temperature 98.4 F 02/06/25 11:22 Temperature Source Temporal Artery Scan 02/06/25 11:22 Pulse Rate 88 02/06/25 11:22 Respiratory Rate 18 02/06/25 11:22 Blood Pressure 136/88 02/06/25 11:22 Blood Pressure Mean 104 02/06/25 11:22 Blood Pressure Position Sitting 02/06/25 11:22 Pulse Oximetry 100 02/06/25 11:22 Oxygen Delivery Method Room Air 02/06/25 11:22 Vital Signs Temperature 98.4 F 02/06/25 11:22 Pulse Rate 88 02/06/25 11:22 Respiratory Rate 18 02/06/25 11:22 Blood Pressure 136/88 02/06/25 11:22 Pulse Oximetry 100 02/06/25 11:22 Oxygen Delivery Method Room Air 02/06/25 11:22 Temperature 96.5 F L 02/06/25 14:47 Pulse Rate 71 02/06/25 14:47 Respiratory Rate 18 02/06/25 14:47 Blood Pressure 151/84 H 02/06/25 14:47 Pulse Oximetry 98 02/06/25 14:47 Oxygen Delivery Method Room Air 02/06/25 14:47 Medications Administered Medications: Discontinued Medications Generic Name Dose Route Start Last Admin Trade Name Freq PRN Reason Stop Dose Admin Sodium Chloride 1,000 mls @ 500 mls/hr 02/06/25 13:13 02/06/25 15:20 0.9 % Sodium Chloride 1000 Ml IV 02/06/25 15:12 Infused .Q2H GERSON Infusion Ondansetron HCl 4 mg 02/06/25 13:11 02/06/25 13:26 Ondansetron 2 Mg/Ml Inj IVP 02/06/25 13:12 4 mg ONCE ONE Administration MDM - Abdominal Pain Lab Data Attestation: I reviewed the patient's lab results. Labs: Lab Results 02/06/25 02/06/25 02/06/25 Range/Units 13:13 13:13 13:28 WBC 7.86 (4.50-11.00) K/uL RBC 3.78 L (4.00-5.20) m/uL Hgb 11.5 L (12.0-16.0) gm/dL Hct 34.9 (33.0-51.0) % MCV 92 (80-100) fL MCH 30 (26-34) pg MCHC 33 (32-36) gm/dL RDW Coeff of Vikash 13.6 (11.5-15.5) % Plt Count 316 (140-440) K/uL Neut % (Auto) 74.2 H (42.0-72.0) % Lymph % (Auto) 15.6 L (20-44) % Clarion % (Auto) 7.0 (0.0-11.0) % Eos % (Auto) 2.8 (0.0-7.0) % Baso % (Auto) 0.1 (0.0-3.0) % Neut # (Auto) 5.80 (1.7-7.0) K/uL Lymph # (Auto) 1.20 (0.90-2.90) K/uL Clarion # (Auto) 0.60 (0.00-0.90) K/UL Eos # (Auto) 0.22 (0.00-0.50) K/uL Baso # (Auto) 0.01 (0.00-0.30) K/uL Abs Immat Gran (auto) 0.02 (0.00-0.30) K/uL Imm/Tot Granulo (auto) 0.3 % INR Cancelled Cancelled 1.41 H Sodium 140 (135-149) mmol/L Potassium 4.4 (3.6-5.1) mmol/L Chloride 105 (96-114) mmol/L Carbon Dioxide 28 (20-32) mmol/L Anion Gap 7 (7-15) mEq/L BUN 14 (7-30) mg/dL Creatinine 0.8 (0.5-1.5) mg/dL Estimated Creat Clear 53.09 Estimated GFR 81 ml/min Glucose 109 (60-115) mg/dL Lactate 1.3 (0.5-1.9) mmol/L Calcium 9.6 (8.4-10.6) mg/dL Total Bilirubin 0.6 (0.1-1.5) mg/dL AST 26 (12-35) U/L ALT 17 (4-35) U/L Alkaline Phosphatase 52 (40-150) U/L Total Protein 7.2 (6.0-8.3) g/dL Albumin 4.3 (3.3-5.0) g/dL Lab Acknowledgement Test Added Imaging Data Abdominal x-ray: Attestation: I have reviewed the pertinent imaging results. My impression: I have reviewed her abdominal imaging. There are some nonspecific air-fluid levels on the right side but overall feel that there is no obstructive process. Await Radiology over-read. Radiologist's impression: Patient: JAMEY HEAD Facility:?[facility] R[facility] Patient ID:?[id number] Site Patient ID:?[id number]. Site :?[id number] Study:?XRay-Abdomen 2v-02/06/2025 1:58:03 PM Ordering Physician:Kamille Lam Final Report: Indication: Abdominal cramping, diarrhea, recent narcotic use Technique: Abdomen 4 view. Comparison: None. Findings/Impression: Bowel: Bowel pattern is nonobstructive. Soft tissues: No sign of free air. No sign of soft tissue mass. No suspicious calcifications. Surgical clips in the right upper quadrant. Bones: No acute abnormality. Degenerative changes of the pubic symphysis with adjacent sclerosis. Dictated by Cleo Sotelo MD @ 02/06/2025 2:29:10 PM (Electronic Signature) Discharge Plan Discharge Clinical Impression: Diarrhea Patient Disposition: Home, Self-Care Condition: Stable Instructions: Acute Diarrhea (ED), Nutrition Tips for Relief of Diarrhea (ED) Additional Instructions: Collect stool and bring back for testing for C difficile if ongoing diarrhea. Review handouts. Your INR was 1.41 today, could consider doing 7.5 mg today and then resuming 5 mg daily. Keep your INR recheck appointment for . If you develop severe abdominal pain, bloody diarrhea, vomiting or fever with ongoing diarrhea, do need to return here. Prescriptions: No Action warfarin 5 mg tablet 5 mg PO DAILY oxycodone 5 mg tablet 5 mg PO Q4H PRN acetaminophen 500 mg capsule 1,000 mg PO Q4-6H PRN Follow Up/Referrals: Aida Nevarez PA-C [Primary Care Provider, Family Practice] Stand Alone Forms: [email or web address] Info Instructions
--- NOTE | 2025-02-06 13:12 | XR_ITS ---
Patient: JAMEY HEAD Facility:?[facility] Patient ID:?[id number] Site Patient ID:?[id number]. Site :?[id number] Study:?XRay-Abdomen 2v-02/06/2025 1:58:03 PM Ordering Physician:?Bettina Lam Final Report: Indication: Abdominal cramping, diarrhea, recent narcotic use Technique: Abdomen 4 view. Comparison: None. Findings/Impression: Bowel: Bowel pattern is nonobstructive. Soft tissues: No sign of free air. No sign of soft tissue mass. No suspicious calcifications. Surgical clips in the right upper quadrant. Bones: No acute abnormality. Degenerative changes of the pubic symphysis with adjacent sclerosis. Dictated by Cleo Sotelo MD @ 02/06/2025 2:29:10 PM (Electronic Signature)
[2025-02-06] MEDS: ONDANSETRON 2 MG/ML inj 4 MG IVP (13:26)
[2025-02-06 13:37] LABS: Lactate* 1.3 mmol/L (0.5-1.9)
[2025-02-06 13:43] LABS: Hematocrit 34.9 % (33.0-51.0); Hemoglobin* 11.5 gm/dL (12.0-16.0); Immature Granulocytes Abs Auto 0.02 K/uL (0.00-0.30); Immature Granulocytes Pct Auto 0.3 %; Mean Corpuscular HGB Conc 33 gm/dL (32-36); Mean Corpuscular Hemoglobin 30 pg (26-34); Mean Corpuscular Volume 92 fL (80-100); RDW Coefficient of Variation % 13.6 % (11.5-15.5); Red Blood Count 3.78 m/uL (4.00-5.20); White Blood Count* 7.86 K/uL (4.50-11.00)
[2025-02-06 13:57] LABS: Albumin* 4.3 g/dL (3.3-5.0); Chloride* 105 mmol/L (96-114); Potassium* 4.4 mmol/L (3.6-5.1); Sodium* 140 mmol/L (135-149)
[2025-02-06 14:00] LABS: Alanine Aminotransferase* 17 U/L (4-35); Alkaline Phosphatase* 52 U/L (40-150); Anion Gap 7 mEq/L (7-15); Aspartate Amino Transferase* 26 U/L (12-35); Bilirubin Total* 0.6 mg/dL (0.1-1.5); Blood Urea Nitrogen* 14 mg/dL (7-30); Calcium* 9.6 mg/dL (8.4-10.6); Carbon Dioxide* 28 mmol/L (20-32); Creatinine* 0.8 mg/dL (0.5-1.5); Est. Creatinine Clearance* 53.09; Estimated Glomerular Filt Rate 81 ml/min; Glucose* 109 mg/dL (60-115); Total Protein* 7.2 g/dL (6.0-8.3)
[2025-02-06 14:02] LABS: Lymphocytes Absolute Auto 1.20 K/uL (0.90-2.90); Slide Review Reflex No
[2025-02-06 14:46] LABS: INR 1.41 (0.91-1.10); Prothrombin Time 18.2 Seconds
[2025-02-06 14:47] VITALS: BP 151/84; PULSE 71; RESP 18; TEMP 35.8; O2SAT 98
[2025-02-06 20:47] LABS: C.Difficile Negative (Negative); CDIFFEPI 027 PRESUMPTIVE NEGATIVE (Negative)
== END 2025-02-06 15:23 | disposition home or self-care (01) ==
PROVIDERS: Emergency Provider Family Medicine; PCP Physician Assistant Medical
DX: R19.7 Diarrhea, unspecified (principal)
CPT/HCPCS: 36415; 74019; 80053; 83605; 85025; 85610; 87493; 96374; 99284; J2405; J7030

== ENCOUNTER 2025-02-09 11:20 | Emergency (ER) | payer OTHER, SELFPAY ==
--- OUTSIDE RECORDS SUMMARY | 2025-02-09 11:21 | XMS_ITS | Clinical Summary ---
Author Organization [facility] Address [address] [place] [id number] Care Team Providers Care Face Hardener Name Role Phone Aida Nevarez Primary Care [...] To right arm 80 g 023 Active fluconazole (DIFLUCAN ORAL) Take by mouth. [...] in 24 hrs. 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 V Leiden mutation (HC),Deep vein thrombophlebitis of left leg (HC),Anticoagulatio n monitoring, INR range 2-3 Take by mouth 01/11: 2.5 mg; 01/27: Hold; 01/28: Hold; 01/29: Hold; 01/30: Hold; 01/31: Hold; Otherwise 5 mg every day in the evening OR as directed 025 2024 Discontin ued(Reord er (E-cancel not sent)) amoxicillin/potassi um clav (AUGMENTIN ORAL) Take by [...] Encounters Date Type Department Care Team Description 02/09/2025 Nurse Triage [facility] [address] [place] [address] Aida Nevarez PA Blood In Stool 02/09/2025 Anticoagulation (warfarin) [facility] [address] [place] [address] NurseKirti Anticoag Anticoagulation 02/08/2025 1:30 PM CDT Orders Only [facility] [address] [place] [address] [place] <No scans attached> 02/08/2025 Travel 02/06/2025 Orders Only [facility] Scanner 1 scan: (1-Ord) [facility], ABDOMEN MIN 2VIEWS, 02/06/2025 02/06/2025 Nurse Triage [facility] [address] [place] [address] Aida Nevarez PA Diarrhea 02/06/[address] [facility] Orthopedics - Joint Re[facility] [address] [facility] [address] [place] [address] Jessica May, dude ranch manager Nurse Navigator (Diarrhea/hemorrhoids ) 02/05/2025 Telephone [facility] [address] [facility] [address] [place] [address] Jessica May, dude ranch manager Nurse Navigator (Follow up discharge phone call) 02/01/2025 8:21 AM CDT Anesthesia Event [address] [address] Casimiro Handy MD Dahl, Carole Hobbs MD 02/01/2025 7:40 AM CDT - 02/01/2025 9:47 AM CDT Surgery [address] [address] Gagandeep Ruff MD BEDDED OUTPATIENT LEFT TOTAL KNEE ARTHROPLASTY 02/01/2025 6:06 AM CDT - 02/02/2025 11:40 AM CDT Hospital Encounter [address] [address] Gagandeep Ruff MD Primary osteoarthritis of left knee (Primary Dx); S/P total knee arthroplasty, left Discharge Disposition: Home Self Care 01/31/2025 Travel 01/25/2025 10:00 AM CDT Orders Only [facility] [address] [place] [address] Lab, [place] Lab 01/25/2025 Anticoagulation (warfarin) [facility] [address] [place] [address] Nurse, Kirti Anticoag Anticoagulation 01/24/2025 Travel 01/16/2025 Telephone [facility] Joint Replacement [place] [address] [facility] [address] [place] [address] Jessica May, dude ranch manager Nurse Navigator (Pre-op check in ) 01/10/2025 10:30 AM CDT Orders Only [facility] [address] [place] [address] Lab, [place] Lab 01/10/2025 Telephone [facility] [address] [place] [address] Aida Nevarez PA Anticoagulation (Procedure hold update.) 01/10/2025 Anticoagulation (warfarin) [facility] [address] [facility] [place] [address] Nurse, Kirti Anticoag Anticoagulation 01/10/2025 Travel 01/09/[address] [facility] Orthopedics - Joint Replacement Center [place] [address] [address] [facility] [address] [place] [address] Gagandeep Ruff MD Physical Therapy 01/08/2025 10:30 AM CDT Office Visit [facility] [address] [place] [address] Aida Nevarez PA Preoperative Exam (L knee) 01/08/2025 Anticoagulation (warfarin) [facility] [address] [place] [address] Nurse, Kirti Anticoag Anticoagulation (chart update) 01/08/2025 Telephone [facility] [address] [place] [address] iAda Nevarez PA Anticoagulation (OPA- amoxicillin-clavulana te (AUGMENTIN)) 01/08/2025 Telephone [facility] [address] [place] [address] Aida Nevarez PA Medication Management (bpbi3jfdh interaction) 01/08/2025 Travel 01/03/2025 Travel 12/14/2024 Anticoagulation (warfarin) [facility] [address] [place] [address] Nurse, Kirti Anticoag Anticoagulation 12/14/2024 Travel 12/04/2024 Telephone [facility] [address] [place] [address] Aida Nevarez PA Anticoagulation (02/01/25 - LEFT TOTAL KNEE ARTHROPLASTY) 11/27/2024 Telephone [facility] [address] [place] [address] Aida Nevarez PA Anticoagulation (INR OVERDUE REMINDER #2) from Last 3 Months Immunizations Immunization Administration Dates Next Due AMB Influenza, IIV3 (Age >=3 years)(Flu Clinic Only) 04/28/2012 AMB Influenza, IIV4 PF (=>6 mos Flulaval,Fluzone Fluarix)(Flu Clinic Only) 04/19/2014 COVID-19 vaccine (Pfizer-Bio NTech 30mcg/0.3mL) 12YO+ BIVALENT PF, MDV 04/03/2022 COVID-19 vaccine (Pfizer-Bio NTech 30mcg/0.3mL) 12YO+ BLAYNE-SUCROSE PF, MDV 12/18/2021 COVID-19 vaccine ([employer]-Bio NTech 30mcg/0.3mL) PF, MDV 05/19/2021,09/30/2020,09/09/2020 Influenza A [...] AM CDT Legal 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 Orthopedics - Joint Replacement Center - [place] [address] [place] [phone] Jennifer Cifuentes PA [address] [place] [address] Scheduled Procedures Name Priority Associated Diagnoses Date/Ti [...] 09/27/2017, Additional history exists COVID-19 vaccine series ( season) 2024 03/22/2024, 03/24/2023, 04/03/2022, Additional history [...] this topic Medical Devices Implanted Type Area Business Analytics Manager Device Identifier Shelf Expiration Date Model / Serial / Lot Insert Tib Sz 6 13mm Knee X3 Condylar Stabilizing Triathlon - [id number] Implanted:Qty: 1 on 02/01/2025 by Gagandeep Ruff MD at [facility] Left: Knee [employer] 10/03/2029 [id number]-G-[id number] -[id number] / / [id number] Patella A38x11 Triathlon Tritanium Asymmetric Metal Backed - [id number] Implanted:Qty: 1 on 02/01/2025 by Gagandeep Ruff MD at [facility] Left: Knee [employer] 09/27/2029 [id number] / / [id number] Baseplate Tib Univ Sz 6 Triathlon Keeled [employer] Tritan - [id number] Implanted:Qty: 1 on 02/01/2025 by Gagandeep Ruff MD at [facility] Left: Knee [employer] 12/01/2029 [id number]-600 / / [id number] Fem Lt 6 Triathlon Beaded W/Pa - [id number] Implanted:Qty: 1 on 02/01/2025 by Gagandeep Ruff MD at [facility] Left: Knee [employer] 11/20/2029 [id number] / / [id number] Procedures Procedure Name Priority Date/Time Associated Diagnosis Comments PROTIME-INR Routine 02/08/2025 1:37 PM CDT Factor V Leiden mutation (HC) Deep vein thrombophlebitis of left leg (HC) Anticoagulation monitoring, INR range 2-3 SCAN-RADIOLOGY REPORT 02/06/2025 12:00 AM CDT HEMOGLOBIN Early AM 02/02/2025 9:01 AM CDT [...] knee Case Notes 60 [id number] REGULAR TABLE [employer] Triathlon, [employer] confirmed w/Socrates Rodriguez [phone] 01/24 JTPA TO ASSIST Special Needs 5ft.7in [...] 3:44 PM CDT Preop general physical exam IN READING EKG - NO CHARGE, COMP ONLY [...] 2-3 COLONOSCOPY SCREENING Routine 04/28/2024 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 INR 2.3(H) <1.3 02/08/2025 11:24 PM CDT [facility] PROTIME 26.4(H) 10.6 - 12.4 sec 02/08/2025 11:24 PM CDT [facility] Blood BLOOD SPECIMEN / Unknown [facility] Collect / Unknown 02/08/2025 1:37 PM CDT 02/08/2025 1:37 PM CDT Narrative [facility] - 02/08/2025 11:24 PM CDT Therapeutic Range 2.0-3.0 for most anticoagulated [...] seconds if the patient is on UFH. us Aida DOWD HEMATOLOGY Final R esult [facility] [address] [place] [address], * SCAN-RADIOLOGY REPORT (02/06/2025 12:00 AM CDT) Anatomical Region Laterality Modality Other us Scanner OTHER Final Result * (ABNORMAL) Hemoglobin ??? Daily x 1 (02/02/2025 9:01 AM CDT) HEMOGLOBIN 11.4(L) 12.0 - 16.0 g/dL 02/02/2025 9:26 AM CDT [facility] MCV 92 80 - 100 fL 02/02/2025 9:26 AM CDT [facility] Blood BLOOD SPECIMEN / Unknown Venipuncture / Unknown 02/02/2025 9:01 AM CDT 02/02/2025 9:12 AM CDT Narrative [facility] - 02/02/2025 9:26 AM CDT Call surgeon if hemoglobin less than 8. us Nathaniel DOWD HEMATOLOGY Final Resu lt [facility] SENDOUT [place] [address]IP [phone] [place] [address] * XR KNEE 2 VIEWS LEFT PORTABLE (02/01/2025 10:48 AM CDT) Anatomical Region Laterality Modality KNEE L Computed Radiogr aphy 02/01/2025 10:4 8 AM CDT Impressions 02/01/2025 10:53 AM CDT Expected postoperative changes status post recent total knee arthroplasty. No immediate hardware complication. No acute fracture or malalignment. Narrative 02/01/2025 10:53 AM CDT For Patients: As a result of the Cures Act, medical imaging exams and procedure reports are released immediately into your electronic medical record. You may view this report before your referring provider. If you have questions, please contact your health care provider. EXAM: XR KNEE 2 VIEWS LEFT PORTABLE LOCATION: [facility] MEDICAL IMAGING DATE: 02/01/2025 INDICATION: Eval prosthesis/appliance [...] XR KNEE 2 VIEWS LEFT PORTABLE LOCATION: [facility] MEDICAL IMAGING DATE: 02/01/2025 INDICATION: Eval prosthesis/appliance [...] of nerve appears normal Events: no complications. us Casimiro Handy MD ANESTHESIA PX NOTE ORDERABLES [...] and removed: yes Difficulty: 0 (not difficult) us Casimiro Handy MD ANESTHESIA PX NOTE ORDERABLES Final Result * GLUCOSE, RANDOM (02/01/2025 7:00 AM CDT) GLUCOSE,RANDOM 106 70 - 139 mg/dL 02/01/2025 7:[address] [facility] Blood BLOOD SPECIMEN / Unknown Venipuncture / Unknown 02/01/2025 7:00 AM CDT 02/01/2025 7:03 AM CDT Gagandeep Ruff MD CHEMISTRY Final Result [facility] SENDOUT [place] [address]IP [phone] [place] [address] * CBC with Platelets no Differential (02/01/2025 7:00 AM CDT) Pathologist [facility] [place] WHITE BLOOD COUNT 6.3 4.5 - 11.0 thou/cu mm 02/01/2025 7:[address] [facility] RED BLOOD COUNT 4.38 4.00 - 5.20 mil/cu mm 02/01/2025 7:[address] [facility] HEMOGLOBIN 13.4 12.0 - 16.0 g/dL 02/01/2025 7:[address] [facility] HEMATOCRIT 39.5 33.0 - 51.0 % 02/01/2025 7:[address] [facility] MCV 90 80 - 100 fL 02/01/2025 7:[address] [facility] MCH 30.6 26.0 - 34.0 pg 02/01/2025 7:[address] [facility] MCHC 33.9 32.0 - 36.0 g/dL 02/01/2025 7:[address] [facility] RDW 13.4 11.5 - 15.5 % 02/01/2025 7:[address] [facility] PLATELET COUNT 292 140 - 440 thou/cu mm 02/01/2025 7:[address] [facility] MPV 9.6 6.5 - 11.0 fL 02/01/2025 7:[address] [facility] NRBC 0.0 % 02/01/2025 7:[address] [facility] ABS NRBC 0.0 thou /cu mm 02/01/2025 7:[address] [facility] Blood BLOOD SPECIMEN / Unknown Venipuncture / Unknown 02/01/2025 7:00 AM CDT 02/01/2025 7:03 AM CDT Narrative [facility] - 02/01/2025 7:12 AM CDT If not done within last 30 days. Nurse to release order. Nathaniel DOWD HEMATOLOGY Final Resu lt Performing Organization Address City/[facility]/ZIP Co de Phone Number [facility] SENDOUT [place] [address] [phone] [place] [address] * Potassium (02/01/2025 7:00 AM CDT) POTASSIUM 4.0 3.5 - 5.1 mmol/L 02/01/2025 7:27 AM CDT [facility] Blood BLOOD SPECIMEN / Unknown Venipuncture / Unknown 02/01/2025 7:00 AM CDT 02/01/2025 7:03 AM CDT Nathaniel DOWD CHEMISTRY Final Resu lt Performing Organization Address [facility] Co de Phone Number [facility] SENDOUT INTERNAL ZIP [phone] [place] [phone] * (ABNORMAL) Creatinine (02/01/2025 7:00 AM CDT) eGFR 67(L) >90 mL/min/1.7 3m2 02/01/2025 7:27 AM CDT [facility] Comment:As of 2021, eG FR is calculated by the CKD-EPI creatinine equation without race adjustment. eGFR can be influenced by muscle mass, exercise, and diet. The reported eGFR is an estimation only and is only applicable if the renal function is stable. CREATININE 0.94(H) 0.50 - 0.90 mg/dL 02/01/2025 7:27 AM CDT [facility] Blood BLOOD SPECIMEN / Unknown Venipuncture / Unknown 02/01/2025 7:00 AM CDT 02/01/2025 7:03 AM CDT Nathaniel DOWD CHEMISTRY Final Resu lt Performing Organization Address City/[facility]/ZIP Co de Phone Number [facility] SENDOUT INTERNAL ZIP [phone] [place] [phone] * SCAN-CARDIAC STRIP (02/01/2025 12:00 AM CDT) Narrative 02/01/2025 12:00 AM CDT Ordered by an unspecified provider. us Other Clinical Staff OTHER Final Resul t * PROTEIN ELP SERUM W REFLEX (01/25/2025 10:10 AM CDT) ELP,ALBUMIN 4.51 3.31 - 5.31 g/dL 01/26/2025 3:24 PM CDT [facility] ELP,ALPHA 1 0.25 0.19 - 0.42 g/dL 01/26/2025 3:24 PM CDT [facility] ELP,ALPHA 2 0.62 0.44 - 1.03 g/dL 01/26/2025 3:24 PM CDT [facility] ELP,GAMMA 0.88 0.59 - 1.46 g/dL 01/26/2025 3:24 PM CDT [facility] ELP,BETA 0.83 0.52 - 1.05 g/dL 01/26/2025 3:24 PM CDT [facility] ELP INTERP,SERUM Normal electrophoretic pattern. No monoclonal protein detected. Interpreted and electronically signed by: Fan Ramon MD 01/26/2025 3:24 PM CDT [facility] PROTEIN,TOTA L 7.1 6.0 - 8.0 g/dL 01/26/2025 3:24 PM CDT [facility] Blood BLOOD SPECIMEN / Unknown [facility] Collect / Unknown 01/25/2025 10:10 AM CDT 01/25/2025 10:10 AM CDT Aida DOWD CHEMISTRY Final R esult [facility] [address] [place] [address], [place] * PROTEIN ELP,URINE RANDOM (01/25/2025 10:10 AM CDT) Pathologist [facility] [place] ELP INTERP, URINE Essentially no proteinuria. No monoclonal protein detected. Interpreted and electronically signed by: Fan Ramon MD 01/26/2025 4:29 PM CDT [facility] PROTEIN QUANT,RAND URINE <6 1 - 14 mg/dL 01/26/2025 4:29 PM CDT [facility] Urine URINE SPECIMEN / Unknown Non-Blood / Unknown 01/25/2025 10:10 AM CDT 01/25/2025 10:10 AM CDT us Aida DOWD URINE Final R esult [facility] [address] [place] [address], [place] * EKG 12 LEAD (01/10/2025 3:44 PM CDT) us Aida DOWD EKG ORD Final R esult * IN READING EKG - NO CHARGE, COMP ONLY (01/10/2025 3:43 PM CDT) us Aida DOWD PB - PROVIDER READINGS Final Result * (ABNORMAL) INR - POCT [[id number]] - Standing Order (01/10/2025 10:43 AM CDT) Only the most recent of2 resultswithin the time period is included. Pathologist [facility] [place] INR 2.9(H) ratio [facility] Comment: INRs >2.9 may be falsely elevated [...] PROTHROMBIN TIMEP 34.7(H) 10.5 - 13.1 sec [facility] Comment: Point of care fingerstick Prothrombin Time/INR results may vary from venous Prothrombin Time/INR methodologies. Any results exhibiting inconsistency with the patient's clinical status should be repeated using a venous Prothrombin Time/INR method. 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 Aida Nevarez PA-C [facility] 04/12/2024 Narrative 04/12/2024 4:25 PM CDT For Patients: Results are automatically released to your [facility] ([employer]) account once available, in compliance with federal regulations. This means that you may see your results before your provider has had a chance to review them. Please allow 2-3 business days for your provider to comment on the results. XR DXA Bone Mineral Density (BMD) EXAM LOCATION: [place] [address] [facility] [address] PATIENT NAME: Mary Montero DATE OF : [...] two scanners are made by the same design coordinator. PROCEDURE: Dual-energy x-ray absorptiometry performed with routine [...] a result of the Cures Act, medical imaging exams and procedure reports are released immediately into your electronic medical record. You may view this report before your referring provider. If you have questions, please contact your health care provider. XR MAMMO ANTONI BILAT SCREEN [[id number]] CLINICAL HISTORY: This is an asymptomatic 68 y.o. patient. INDICATION FOR EXAM: Mammogram Screening. TECHNIQUE: CC & MLO views were obtained. This study was evaluated with the assistance of Computer-Aided Detection. Breast Tomosynthesis was used in interpretation. COMPARISON FILM: Yes 12/17/22 [facility] 09/04/21 [facility] FINDINGS: There are scattered areas of fibroglandular density. There are no dominant masses, suspicious micro calcifications or areas of architectural distortion. us Aida DOWD MAMMO Final R esult * (ABNORMAL) LIPID PANEL W REFLEX MEASURED LDL (01/18/2024 11:34 AM CDT) CHOLESTEROL,TOTAL 204(H) 100 - 199 mg/dL 01/19/2024 1:12 AM CDT [facility] Comment: Cholesterol, Total Reference Ranges Desirable <200 mg/dL Borderline 200-239 mg/dL High >=240 mg/dL TRIGLYCERIDES 121 <150 mg/dL 01/19/2024 1:12 AM CDT [facility] HDL CHOLESTEROL 62 >40 mg/dL 1:12 AM CDT [facility] NON-HDL CHOLESTEROL 142 <145 mg/dl 01/19/2024 1:12 AM CDT [facility] CHOL/HDL RATIO 3.29 <4.50 01/19/2024 1:12 AM CDT [facility] LDL CHOLESTEROL 118 <=130 mg/dL 01/19/2024 1:12 AM CDT [facility] VLDL CHOLESTEROL 24 <=30 mg/dL 01/19/2024 1:12 AM CDT [facility] PROVIDER ORDERED STATUS RANDOM 01/19/2024 1:12 AM CDT [facility] Blood BLOOD SPECIMEN / Unknown Venipuncture / Unknown 01/18/2024 11:34 AM CDT 01/18/2024 11:34 AM CDT Aida DOWD CHEMISTRY Final R esult [facility] [address] [place] [address], [place] * ANTI HCV [[id number]] (10/10/2013 1:44 PM CDT) HEPATITIS C ANTIBODY Non-Reacti ve Non-Reacti ve 10/10/2013 10:04 PM CDT [facility] Blood specimen (specimen) BLOOD SPECIMEN / Unknown Venipuncture / Unknown 10/10/2013 1:44 PM CDT 10/10/2013 1:44 PM CDT Narrative [facility] - 10/10/2013 10:04 PM CDT Antibodies to HCV not detected; does not exclude the possibility of exposure to HCV. Jo Ann Gibson SEND OUTS Final R esult [facility] [address] [place] [address], [place] from Last 3 Months or Most Recently Relevant to Health Maintenance Insurance MEDICA ELECT Advance Directives * Full Code (Latest Code Status on File) Date Activated Date Inactivated Comments 02/01/2025 3:18 PM 02/02/2025 1:52 PM Question Answer Comments Code Status Discussion: Unable to Assess Preferences, Provider to review later * Full Code Date Activated Date Inactivated Comments 02/01/2025 6:36 AM 02/01/2025 3:18 PM Question Answer Comments Code Status Discussion: Not Discussed Care Teams Face Hardener Relationship Specialty Start Date End Date Aida Nevarez PA [address] [place] [address] PCP - General Family Practice 05/21/15
[2025-02-09 11:56] VITALS: BP 141/85; PULSE 82; RESP 16; TEMP 36.9; O2SAT 100; BMI 35.2
--- NOTE | 2025-02-09 12:02 | ED.GENADULT ---
HPI - General Adult General Chief complaint: GI Bleed Stated complaint: sent by [facility] Time Seen by Provider: 02/09/25 11:34 History of Present Illness HPI narrative: Pt reports was seen here a few days ago ( Wednesday) for same symptoms. Has had bowel movement with some blood clots, has ongoing issues with hemorrhoids. Is on warfarin and INR is up from a few days ago. Only has had this bleeding with BMs. No new pain or other new symptoms. 69-year-old woman presenting to the emergency department with concern bright red blood per rectum. Was seen here in this department 3 days ago with some diarrhea that began after taking senna to treat constipation after being treated with oxycodone following a mid month knee replacement. Had been experiencing some anal pain at that time as well. On exam no fissure or any significant hemorrhoids were noted. INR was subtherapeutic at that time of 1.4. Was discharged with collection kit for C diff if diarrhea were to continue. She reports that this was turned in and was negative. INR got as high as 2.3 2 days ago. Has continued to have diarrheal stools though more like loose stools this morning unfortunately both loose stools today or accompanied by a near hemorrhoidal bleeding with some nickel sized clots as she demonstrates. She is not having abdominal pain. But does feel a little queasy sometimes. Has had a colonoscopy here which I am able to locate from April of 2024 there is no note of diverticular disease in that report. Benign overall. Related Data Home Medications ?Medication ?Instructions ?Recorded ?Confirmed acetaminophen 500 mg capsule 1,000 mg PO Q4-6H PRN 02/06/25 02/06/25 oxycodone 5 mg tablet 5 mg PO Q4H PRN 02/06/25 02/06/25 warfarin 5 mg tablet 5 mg PO DAILY 02/06/25 02/06/25 Allergies Allergy/AdvReac Type Severity Reaction Status Date / Time sulfamethoxazole (From Allergy Verified 02/06/25 11:35 Bactrim) tetanus and diphtheria Allergy Verified 02/06/25 11:35 toxoids trimethoprim (From Bactrim) Allergy Verified 02/06/25 11:35 Review of Systems Status of ROS: Reports: 6 or more systems reviewed and unremarkable except as noted in History and below PFSH PFSH Social History Smoking Status: Never smoker How often do you have a drink containing alcohol: monthly or less AUDIT-C Alcohol total score: 1 Non-prescribed substance use: denies use service: No Exam Narrative: Exam Narrative: Very pleasant. NAD. Skin is warm and dry. Left leg with intact surgical bandage with diffuse swelling and bruising not inconsistent with postop status. She is well-perfused peripherally. Heart in regular rate and rhythm without murmur rub or gallop. Lungs appear to be clear. Abdomen is soft without peritoneal signs. She is mildly tender to palpation in the left lower quadrant. Const: Vital Signs, click to edit/add: Vital Signs - 24 hr 02/09/25 11:56 Temperature 98.5 F Pulse Rate [Pulse Oximeter] 82 Respiratory Rate 16 Blood Pressure [Ri ght Upper Arm] 141/85 H Pulse Oximetry 100 Oxygen Delivery Me thod Room Air Documenting provider has reviewed patient's vital signs: yes Course Vital Signs Vital signs: Initial Vital Signs Temperature 98.5 F 02/09/25 11:56 Temperature Source Temporal Artery Scan 02/09/25 11:56 Pulse Rate 82 02/09/25 11:56 Respiratory Rate 16 02/09/25 11:56 Blood Pressure 141/85 H 02/09/25 11:56 Blood Pressure Mean 103 02/09/25 11:56 Blood Pressure Position Sitting 02/09/25 11:56 Pulse Oximetry 100 02/09/25 11:56 Oxygen Delivery Method Room Air 02/09/25 11:56 Vital Signs Temperature 98.5 F 02/09/25 11:56 Pulse Rate 82 02/09/25 11:56 Respiratory Rate 16 02/09/25 11:56 Blood Pressure 141/85 H 02/09/25 11:56 Pulse Oximetry 100 02/09/25 11:56 Oxygen Delivery Method Room Air 02/09/25 11:56 Temperature 98.5 F 02/09/25 11:56 Pulse Rate 75 02/09/25 13:55 Respiratory Rate 18 02/09/25 13:55 Blood Pressure 148/86 H 02/09/25 13:55 Pulse Oximetry 99 02/09/25 13:55 Oxygen Delivery Method Room Air 02/09/25 13:55 Medical Decision Making MDM Narrative Medical decision making narrative: Will place IV. Check hemoglobin and INR. Will need yet to have an anoscopy exam. Discomfort in the left lower abdomen could represent diverticular bleed despite a normal colonoscopy last year. This could be referring though also from deeper hemorrhoidal bleed. This does seem to be a lingering but improving diarrhea triggered by bowel aid resulting exacerbation of hemorrhoidal bleed but might be more significant. 12:50 p.m. I did return to perform chaperoned anoscopy exam. There is evidence of a small anal fissure at 12 o'clock and small noninflamed hemorrhoidal tags at 6 o'clock. Anoscopy exam was uncomfortable. There is significantly inflamed tissue that appears to be tender inside the dentate line at 6 o'clock. I suspect this is the source of bleeding. Pending results of labs to prompt CT imaging of the abdomen looking for potential diverticulitis. Labs are generally reassuring. Normal white count. CRP is elevated likely related to postoperative changes. I do not think will need abdominal imaging given normal labs and colonoscopy as reported above. I suspect this bleeding is more rectal passage, related to some degree of constipation. Concern of full feeling now around the ankle. 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 She does confirm that was at some point prior to surgery, left total knee a week ago, was free of clot in this left leg. Coumadin is being adjusted. Historically has been stable on 40 mg weekly. Last week when seen was recommended another 2.5 mg. Checked yesterday at 2.3 she says. Proceed with ultrasound of the left leg. This does confirm DVT per my conversation with agriculture professor. Radiology over-read below INDICATION: Swelling TECHNIQUE: Ultrasound venous duplex lower left extremity. Compression venous exam was performed using hood-scale, color Doppler, and spectral Doppler analysis. COMPARISON: None. FINDINGS: Deep veins: Sonographic imaging demonstrates the left common femoral, deep femoral, superficial femoral, popliteal, and the contralateral right common femoral veins to be fully compressible. Echogenic thrombus with incomplete compressibility seen within the posterior tibial and peroneal veins. Superficial veins: Greater saphenous vein is fully compressible. IMPRESSION: Deep venous thrombus in the left posterior tibial and peroneal veins. Dictated by Luis Fonseca MD @ 02/09/2025 2:24:23 PM Will be increasing Coumadin dosing to historical usual. Is near goal. No other concerning symptoms to suggest pulmonary embolus. I did discuss this case with Orthopedics and in agreement with plan. See patient discharge plan for further discussion Elevate your leg. As discussed, probably best to return to your usual dosing of Coumadin at 40 mg a week. Would take another 2.5 mg today and then again at this point on Wednesday. Recheck at ortho follow-up next week. Do what you can to keep your stool soft but not diarrheal. Stay well-hydrated and supplement with MiraLax or Benefiber diluted in at least 8 oz of liquid per dose. Be seen sooner for marked increase in persistent rectal bleeding, increasing and persistent abdominal pain, fever, marked increase in pain or swelling of your leg, chest pain or shortness of breath. Medical Records Medical records reviewed: Yes I reviewed the patient's medical records Lab Data Lab results reviewed: Yes I reviewed the patient's lab results Labs: Lab Results 02/09/25 Range/Units 12:35 WBC 7.84 (4.50-11.00) K/uL RBC 3.87 L (4.00-5.20) m/uL Hgb 11.8 L (12.0-16.0) gm/dL Hct 35.7 (33.0-51.0) % MCV 92 (80-100) fL MCH 31 (26-34) pg MCHC 33 (32-36) gm/dL RDW Coeff of Vikash 13.7 (11.5-15.5) % Plt Count 350 (140-440) K/uL Neut % (Auto) 77.3 H (42.0-72.0) % Lymph % (Auto) 12.9 L (20-44) % [place] % (Auto) 7.1 (0.0-11.0) % Eos % (Auto) 2.0 (0.0-7.0) % Baso % (Auto) 0.3 (0.0-3.0) % Neut # (Auto) 6.10 (1.7-7.0) K/uL Lymph # (Auto) 1.00 (0.90-2.90) K/uL [place] # (Auto) 0.60 (0.00-0.90) K/UL Eos # (Auto) 0.16 (0.00-0.50) K/uL Baso # (Auto) 0.02 (0.00-0.30) K/uL Abs Immat Gran (auto) 0.03 (0.00-0.30) K/uL Imm/Tot Granulo (auto) 0.4 % INR 1.95 H (0.91-1.10) Sodium 138 (135-149) mmol/L Potassium 4.0 (3.6-5.1) mmol/L Chloride 104 (96-114) mmol/L Carbon Dioxide 28 (20-32) mmol/L Anion Gap 6 L (7-15) mEq/L BUN 11 (7-30) mg/dL Creatinine 0.9 (0.5-1.5) mg/dL Estimated Creat Clear 53.09 Estimated GFR 70 ml/min Glucose 106 (60-115) mg/dL Calcium 9.8 (8.4-10.6) mg/dL C-Reactive Protein 5.2 H (0.5-1.0) mg/dL Discharge Plan Discharge Clinical Impression: Bright red rectal bleeding, Postoperative acute deep vein thrombosis (DVT) of lower extremity Patient Disposition: Home w/ Parent or Adult Condition: Stable Additional Instructions: Elevate your leg. As discussed, probably best to return to your usual dosing of Coumadin at 40 mg a week. Would take another 2.5 mg today and then again at this point on Wednesday. Recheck at ortho follow-up next week. Do what you can to keep your stool soft but not diarrheal. Stay well-hydrated and supplement with MiraLax or Benefiber diluted in at least 8 oz of liquid per dose. Be seen sooner for marked increase in persistent rectal bleeding, increasing and persistent abdominal pain, fever, marked increase in pain or swelling of your leg, chest pain or shortness of breath. Prescriptions: No Action warfarin 5 mg tablet 5 mg PO DAILY oxycodone 5 mg tablet 5 mg PO Q4H PRN acetaminophen 500 mg capsule 1,000 mg PO Q4-6H PRN Follow Up/Referrals: Aida Nevarez PA-C [Primary Care Provider, [facility]] Stand Alone Forms: [employer] Info Instructions
[2025-02-09 12:45] LABS: Hematocrit 35.7 % (33.0-51.0); Hemoglobin* 11.8 gm/dL (12.0-16.0); Immature Granulocytes Abs Auto 0.03 K/uL (0.00-0.30); Immature Granulocytes Pct Auto 0.4 %; Lymphocytes Absolute Auto 1.00 K/uL (0.90-2.90); Mean Corpuscular HGB Conc 33 gm/dL (32-36); Mean Corpuscular Hemoglobin 31 pg (26-34); Mean Corpuscular Volume 92 fL (80-100); RDW Coefficient of Variation % 13.7 % (11.5-15.5); Red Blood Count 3.87 m/uL (4.00-5.20); Slide Review Reflex No; White Blood Count* 7.84 K/uL (4.50-11.00)
--- NOTE | 2025-02-09 12:54 | CRLHL7_ITS ---
For Patients: As a result of the Century Cures Act, medical imaging exams and procedure reports are released immediately into your electronic medical record. You may view this report before your referring provider. If you have questions, please contact your health care provider. INDICATION: Swelling TECHNIQUE: Ultrasound venous duplex lower left extremity. Compression venous exam was performed using hood-scale, color Doppler, and spectral Doppler analysis. COMPARISON: None. FINDINGS: Deep veins: Sonographic imaging demonstrates the left common femoral, deep femoral, superficial femoral, popliteal, and the contralateral right common femoral veins to be fully compressible. Echogenic thrombus with incomplete compressibility seen within the posterior tibial and peroneal veins. Superficial veins: Greater saphenous vein is fully compressible. IMPRESSION: Deep venous thrombus in the left posterior tibial and peroneal veins. Dictated by Luis Fonseca MD @ 02/09/2025 2:24:23 PM (Electronically Signed)
[2025-02-09 13:02] LABS: Chloride* 104 mmol/L (96-114)
[2025-02-09 13:03] LABS: Potassium* 4.0 mmol/L (3.6-5.1); Sodium* 138 mmol/L (135-149)
[2025-02-09 13:05] LABS: Blood Urea Nitrogen* 11 mg/dL (7-30); Creatinine* 0.9 mg/dL (0.5-1.5); Est. Creatinine Clearance* 53.09; Estimated Glomerular Filt Rate 70 ml/min
[2025-02-09 13:06] LABS: Anion Gap 6 mEq/L (7-15); Calcium* 9.8 mg/dL (8.4-10.6); Carbon Dioxide* 28 mmol/L (20-32); Glucose* 106 mg/dL (60-115)
[2025-02-09 13:16] LABS: INR 1.95 (0.91-1.10); Prothrombin Time 23.3 Seconds
[2025-02-09 13:55] VITALS: BP 148/86; PULSE 75; RESP 18; O2SAT 99
== END 2025-02-09 14:55 | disposition home or self-care (01) ==
PROVIDERS: Emergency Provider Family Medicine; PCP Physician Assistant Medical
DX: K62.5 Hemorrhage of anus and rectum (principal); I82.402 Acute embolism and thrombosis of unspecified deep veins of left lower extremity; Z79.01 Long term (current) use of anticoagulants
CPT/HCPCS: 36415; 80048; 85025; 85610; 86140; 93971; 99284

== ENCOUNTER 2025-04-19 07:30 | Outpatient (RCR) | payer OTHER, SELFPAY | END 2025-04-19 10:11 | disposition home or self-care (01) | PROVIDERS: PCP Physician Assistant Medical; Visit Provider Orthopaedic Surgery Adult Reconstructive Orthopaedic Surgery | DX: Z47.1 Aftercare following joint replacement surgery (principal); M17.12 Unilateral primary osteoarthritis, left knee; M25.562 Pain in left knee; Z51.89 Encounter for other specified aftercare | CPT/HCPCS: 97110; 97112; 97116; 97140; 97162 ==